=== PATIENT | female | born 1950 ===

== ENCOUNTER 2019-03-18 00:08 | Emergency (ER) | payer MEDICARE, OTHER ==
[2019-03-21 10:44] LABS: BASOPHILS % 0.7 % (0.0-1.5); NEUTROPHILS # 4.5 # k/uL (1.4-7.7); eGFR (Non-African) > 60
== END 2019-03-18 02:18 | disposition short-term general hospital (02) ==
LOC: ED 00:08
DX: I47.1 Supraventricular tachycardia (principal); R79.89 Other specified abnormal findings of blood chemistry
CPT/HCPCS: 36415; 71020; 80053; 83880; 84484; 85025; 99285; S1016